=== PATIENT | male | born 1945 | race Caucasian/White ===

== ENCOUNTER 2021-07-03 10:47 | Inpatient (IN) ==
[2021-07-03 11:29] LABS: Basophils % 0.2 %; Eosinophils % 0.1 %; Hematocrit 23.1 % (37.5-50.1); Hemoglobin 7.1 g/dL (12.9-16.9); Immature Granulocytes % 0.7 % (0-4); Lymphocytes # 0.8 K/mcL (0.6-4.6); Lymphocytes % 4.3 %; Mean Corpuscular HGB Conc 30.7 g/dL (31.6-35.5); Mean Corpuscular Hemoglobin 30.2 pg (28.0-33.3); Mean Corpuscular Volume 98.3 fL (83.0-100.0); Mean Platelet Volume 10.4 fL (9.4-12.4); Monocytes % 5.5 %; Neutrophils # 16.4 K/mcL (1.6-8.9); Platelet Count 389 K/mcL (140-400); Red Blood Count 2.35 M/mcL (4.19-5.50); Red Cell Distribution Width 13.6 % (11.5-14.5); Segmented Neutrophils % 89.2 %; White Blood Count 18.3 K/mcL (4.3-11.1)
[2021-07-03 11:37] LABS: INR 1.2; Prothrombin Time 13.2 Seconds (9.4-12.1)
[2021-07-03 11:39] LABS: Activated Partial Thrombo Time 31.4 Seconds (26.0-36.0)
[2021-07-03 11:52] LABS: Albumin 3.5 g/dL (3.5-5.7); Albumin/Globulin Ratio 1.1 (1.1-2.2); Bilirubin,Total 0.2 mg/dL (0.3-1.0); Calcium 8.7 mg/dL (8.6-10.3); Globulin 3.1 g/dL (2.4-3.5); Potassium 5.6 mEq/L (3.5-5.1); Total Protein 6.6 g/dL (6.4-8.9); Troponin I 0.03 ng/mL (< 0.04)
[2021-07-03] MEDS ORDERED: Pantoprazole 40 MG VIAL IVP ONE (13:08)
[2021-07-03] MEDS ORDERED: 0.9 % Sodium Chloride 250 ML ONE (14:28)
[2021-07-03] MEDS ORDERED: Naloxone 0.4 MG/ML INJ IVP PRN (14:36)
[2021-07-03] MEDS ORDERED: MOM Conc 10 ML UD.LIQ PO PRN (17:40)
[2021-07-03] MEDS ORDERED: Ondansetron ODT 4 MG TAB.RAPDIS PO PRN (17:40)
[2021-07-03] MEDS ORDERED: Acetaminophen 325 MG TABLET PO PRN (17:40)
[2021-07-03] MEDS: QUEtiapine Fumarate 100 MG TABLET PO SCH (19:54)
[2021-07-03] MEDS: Melatonin 3 MG TABLET PO SCH (19:54)
[2021-07-03] MEDS: Divalproex (12 HR) 250 MG TABLET PO SCH (19:55)
[2021-07-03] MEDS: Mirtazapine 15 MG TABLET PO SCH (19:55)
[2021-07-03] MEDS: lisinopriL 5 MG TABLET PO SCH (19:55)
[2021-07-03] MEDS: CarBAMazepine 100 MG TABLET PO SCH (19:56)
[2021-07-04 02:11] LABS: Basophils # 0.1 K/mcL (0.0-0.2); Basophils % 0.5 %; Eosinophils # 0.1 K/mcL (0.0-0.6); Eosinophils % 1.5 %; Hematocrit 20.7 % (37.5-50.1); Hemoglobin 6.5 g/dL (12.9-16.9); Immature Granulocytes % 1.3 % (0-4); Lymphocytes # 1.8 K/mcL (0.6-4.6); Lymphocytes % 18.7 %; Mean Corpuscular HGB Conc 31.4 g/dL (31.6-35.5); Mean Corpuscular Hemoglobin 31.3 pg (28.0-33.3); Mean Corpuscular Volume 99.5 fL (83.0-100.0); Mean Platelet Volume 10.5 fL (9.4-12.4); Monocytes # 0.8 K/mcL (0.0-1.3); Monocytes % 8.1 %; Neutrophils # 6.6 K/mcL (1.6-8.9); Nucleated Red Blood Cells 0.2 /100 WBC (0); Platelet Count 277 K/mcL (140-400); Red Blood Count 2.08 M/mcL (4.19-5.50); Segmented Neutrophils % 69.9 %; White Blood Count 9.5 K/mcL (4.3-11.1)
[2021-07-04 02:28] LABS: Calcium 7.8 mg/dL (8.6-10.3); Potassium 4.7 mEq/L (3.5-5.1)
[2021-07-04] MEDS ORDERED: 0.9 % Sodium Chloride 250 ML ONE (02:53)
[2021-07-04] MEDS: ALPRAZolam 0.5 MG TABLET PO SCH ×5 (05:19→20:17)
[2021-07-04] MEDS ORDERED: Pantoprazole 40 MG VIAL IVP SCH (06:00)
[2021-07-04] MEDS ORDERED: 0.9 % Sodium Chloride 500 ML IV ONE (06:18)
[2021-07-04] MEDS ORDERED: 0.9 % Sodium Chloride 500 ML ONE (06:19)
[2021-07-04] MEDS: Isosorbide MONOnitrate (24 HR) 30 MG TAB.ER.24H PO SCH ×2 (07:41→07:45)
[2021-07-04] MEDS: Aspirin Enteric Coated 81 MG Tablet PO SCH (07:41)
[2021-07-04] MEDS: QUEtiapine Fumarate 100 MG TABLET PO SCH ×2 (07:41→19:57)
[2021-07-04] MEDS: Divalproex (12 HR) 250 MG TABLET PO SCH ×2 (07:41→20:08)
[2021-07-04] MEDS: CarBAMazepine 100 MG TABLET PO SCH ×2 (07:41→20:17)
[2021-07-04 09:56] LABS: Hemoglobin 7.8 g/dL (12.9-16.9)
[2021-07-04] MEDS ORDERED: Lidocaine -MPF 2% 5 ML VIAL ONE (14:09)
[2021-07-04] MEDS ORDERED: *HR* EPINEPHrine 1 MG/10 ML SYRINGE INTRATRACH PRN (14:45)
[2021-07-04] MEDS ORDERED: *HR* Propofol 200 MG/20 ML VIAL IVP ONE (14:46)
[2021-07-04] MEDS: Pantoprazole 40 MG in 0.9 % Sodium Chloride Mini Bag 100 ML IVC SCH ×2 (17:56→20:18)
[2021-07-04] MEDS: Mirtazapine 15 MG TABLET PO SCH (19:56)
[2021-07-04] MEDS: Melatonin 3 MG TABLET PO SCH (19:57)
[2021-07-04] MEDS: lisinopriL 5 MG TABLET PO SCH (20:09)
[2021-07-04 22:41] LABS: Basophils % 0.4 %; Eosinophils % 0.3 %; Hematocrit 22.9 % (37.5-50.1); Hemoglobin 7.5 g/dL (12.9-16.9); Immature Granulocytes % 3.7 % (0-4); Lymphocytes % 19.8 %; Mean Corpuscular HGB Conc 32.8 g/dL (31.6-35.5); Mean Corpuscular Volume 94.6 fL (83.0-100.0); Mean Platelet Volume 9.8 fL (9.4-12.4); Monocytes # 0.7 K/mcL (0.0-1.3); Monocytes % 6.9 %; Neutrophils # 6.8 K/mcL (1.6-8.9); Nucleated Red Blood Cells 0.4 /100 WBC (0); Platelet Count 225 K/mcL (140-400); Red Blood Count 2.42 M/mcL (4.19-5.50); Red Cell Distribution Width 15.2 % (11.5-14.5); Segmented Neutrophils % 68.9 %; White Blood Count 9.8 K/mcL (4.3-11.1)
[2021-07-05] MEDS: Pantoprazole 40 MG in 0.9 % Sodium Chloride Mini Bag 100 ML IVC SCH ×5 (01:28→23:29)
[2021-07-05 03:33] LABS: Hematocrit 22.4 % (37.5-50.1); Hemoglobin 7.1 g/dL (12.9-16.9)
[2021-07-05 03:36] LABS: Basophils % 0.5 %; Eosinophils # 0.1 K/mcL (0.0-0.6); Eosinophils % 1.1 %; Hematocrit 22.4 % (37.5-50.1); Hemoglobin 7.1 g/dL (12.9-16.9); Lymphocytes # 1.8 K/mcL (0.6-4.6); Lymphocytes % 21.1 %; Mean Corpuscular HGB Conc 31.7 g/dL (31.6-35.5); Mean Corpuscular Hemoglobin 30.5 pg (28.0-33.3); Mean Corpuscular Volume 96.1 fL (83.0-100.0); Mean Platelet Volume 10.1 fL (9.4-12.4); Monocytes # 0.7 K/mcL (0.0-1.3); Monocytes % 8.2 %; Neutrophils # 5.4 K/mcL (1.6-8.9); Nucleated Red Blood Cells 0.5 /100 WBC (0); Platelet Count 224 K/mcL (140-400); Red Blood Count 2.33 M/mcL (4.19-5.50); Red Cell Distribution Width 15.3 % (11.5-14.5); Segmented Neutrophils % 65.1 %; White Blood Count 8.3 K/mcL (4.3-11.1)
[2021-07-05 03:51] LABS: BUN/Creatinine Ratio 63 (6-26); Blood Urea Nitrogen 79 mg/dL (8-23); Calcium 7.5 mg/dL (8.6-10.3); Carbon Dioxide 20 mEq/L (23-29); Chloride 113 mEq/L (98-107); Glucose 112 mg/dL (70-105); Osmolality,Calculated 312 (280-300); Potassium 4.4 mEq/L (3.5-5.1); Sodium 139 mEq/L (136-145); eGFR For African Americans > 60 (> 60); eGFR For Non-African Americans 56 (> 60)
[2021-07-05] MEDS: QUEtiapine Fumarate 100 MG TABLET PO SCH ×2 (08:41→21:45)
[2021-07-05] MEDS: Aspirin Enteric Coated 81 MG Tablet PO SCH (08:41)
[2021-07-05] MEDS: Divalproex (12 HR) 250 MG TABLET PO SCH ×2 (08:41→21:47)
[2021-07-05] MEDS: Isosorbide MONOnitrate (24 HR) 30 MG TAB.ER.24H PO SCH (08:41)
[2021-07-05] MEDS: CarBAMazepine 100 MG TABLET PO SCH ×2 (08:42→21:47)
[2021-07-05] MEDS: ALPRAZolam 0.5 MG TABLET PO SCH ×4 (09:46→21:45)
[2021-07-05 10:42] LABS: Hematocrit 21.8 % (37.5-50.1); Hemoglobin 7.2 g/dL (12.9-16.9)
[2021-07-05] MEDS ORDERED: 0.9 % Sodium Chloride 1,000 ML IVC ONE (16:40)
[2021-07-05 16:41] LABS: Hematocrit 18.7 % (37.5-50.1)
[2021-07-05] MEDS ORDERED: 0.9 % Sodium Chloride 1,000 ML ONE (16:43)
[2021-07-05] MEDS ORDERED: *HR* EPINEPHrine 1 MG/10 ML SYRINGE INTRATRACH PRN (18:25)
[2021-07-05] MEDS ORDERED: *HR* Propofol 200 MG/20 ML VIAL IVP ONE (18:29)
[2021-07-05] MEDS ORDERED: Lidocaine -MPF 2% 2 ML VIAL ONE (18:56)
[2021-07-05 21:23] LABS: Hematocrit 27.2 % (37.5-50.1)
[2021-07-05 21:24] LABS: Hemoglobin 8.7 g/dL (12.9-16.9)
[2021-07-05] MEDS: Melatonin 3 MG TABLET PO SCH (21:45)
[2021-07-05] MEDS: lisinopriL 5 MG TABLET PO SCH (21:45)
[2021-07-05] MEDS: Mirtazapine 15 MG TABLET PO SCH (21:46)
[2021-07-06 04:19] LABS: Hemoglobin 8.8 g/dL (12.9-16.9); Immature Granulocytes % 4.2 % (0-4); Lymphocytes % 14.9 %; Mean Corpuscular HGB Conc 30.3 g/dL (31.6-35.5); Mean Corpuscular Hemoglobin 29.5 pg (28.0-33.3); Mean Corpuscular Volume 97.3 fL (83.0-100.0); Mean Platelet Volume 10.2 fL (9.4-12.4); Platelet Count 182 K/mcL (140-400); Red Blood Count 2.98 M/mcL (4.19-5.50); Red Cell Distribution Width 16.1 % (11.5-14.5); Segmented Neutrophils % 69.5 %
[2021-07-06 04:20] LABS: Basophils # 0.1 K/mcL (0.0-0.2); Basophils % 0.7 %; Eosinophils # 0.1 K/mcL (0.0-0.6); Eosinophils % 0.4 %; Lymphocytes # 2.3 K/mcL (0.6-4.6); Monocytes # 1.6 K/mcL (0.0-1.3); Monocytes % 10.3 %; Neutrophils # 10.6 K/mcL (1.6-8.9); Nucleated Red Blood Cells 1.3 /100 WBC (0)
[2021-07-06 04:21] LABS: White Blood Count 15.3 K/mcL (4.3-11.1)
[2021-07-06 04:42] LABS: BUN/Creatinine Ratio 55 (6-26); Blood Urea Nitrogen 63 mg/dL (8-23); Calcium 7.6 mg/dL (8.6-10.3); Carbon Dioxide 18 mEq/L (23-29); Chloride 114 mEq/L (98-107); Glucose 99 mg/dL (70-105); Osmolality,Calculated 304 (280-300); Sodium 138 mEq/L (136-145); eGFR For African Americans > 60 (> 60); eGFR For Non-African Americans > 60 (> 60)
[2021-07-06] MEDS: Pantoprazole 40 MG in 0.9 % Sodium Chloride Mini Bag 100 ML IVC SCH ×2 (05:04→11:47)
[2021-07-06 08:39] LABS: Hematocrit 22.7 % (37.5-50.1); Hemoglobin 7.7 g/dL (12.9-16.9)
[2021-07-06 08:41] LABS: VBG Ionized Calcium 1.23 mmol/L (1.15-1.35)
[2021-07-06] MEDS: Isosorbide MONOnitrate (24 HR) 30 MG TAB.ER.24H PO SCH (09:55)
[2021-07-06] MEDS: Divalproex (12 HR) 250 MG TABLET PO SCH ×2 (09:56→21:05)
[2021-07-06] MEDS: Aspirin Enteric Coated 81 MG Tablet PO SCH (09:56)
[2021-07-06] MEDS: CarBAMazepine 100 MG TABLET PO SCH ×2 (09:57→21:06)
[2021-07-06] MEDS: QUEtiapine Fumarate 100 MG TABLET PO SCH ×2 (09:57→21:05)
[2021-07-06] MEDS: ALPRAZolam 0.5 MG TABLET PO SCH ×4 (09:58→21:14)
[2021-07-06 13:34] LABS: Hemoglobin 7.1 g/dL (12.9-16.9)
[2021-07-06 18:42] LABS: Hematocrit 23.4 % (37.5-50.1); Hemoglobin 7.4 g/dL (12.9-16.9)
[2021-07-06] MEDS: Mirtazapine 15 MG TABLET PO SCH (21:05)
[2021-07-06] MEDS: Melatonin 3 MG TABLET PO SCH (21:05)
[2021-07-06] MEDS: lisinopriL 5 MG TABLET PO SCH (21:06)
[2021-07-07] MEDS: Pantoprazole 40 MG in 0.9 % Sodium Chloride Mini Bag 100 ML IVC SCH ×4 (00:39→20:06)
[2021-07-07 00:51] LABS: Hematocrit 22.6 % (37.5-50.1); Hemoglobin 7.4 g/dL (12.9-16.9); Mean Corpuscular HGB Conc 32.7 g/dL (31.6-35.5); Mean Corpuscular Hemoglobin 31.1 pg (28.0-33.3); Platelet Count 187 K/mcL (140-400); Red Blood Count 2.38 M/mcL (4.19-5.50); White Blood Count 9.8 K/mcL (4.3-11.1)
[2021-07-07 01:10] LABS: BUN/Creatinine Ratio 41 (6-26); Blood Urea Nitrogen 41 mg/dL (8-23); Calcium 7.8 mg/dL (8.6-10.3); Carbon Dioxide 19 mEq/L (23-29); Chloride 116 mEq/L (98-107); Glucose 90 mg/dL (70-105); Osmolality,Calculated 306 (280-300); Potassium 4.1 mEq/L (3.5-5.1); Sodium 143 mEq/L (136-145); eGFR For African Americans > 60 (> 60); eGFR For Non-African Americans > 60 (> 60)
[2021-07-07] MEDS: Aspirin Enteric Coated 81 MG Tablet PO SCH (09:13)
[2021-07-07] MEDS: CarBAMazepine 100 MG TABLET PO SCH ×2 (09:13→21:35)
[2021-07-07] MEDS: QUEtiapine Fumarate 100 MG TABLET PO SCH ×2 (09:14→21:36)
[2021-07-07] MEDS: ALPRAZolam 0.5 MG TABLET PO SCH ×4 (09:14→21:36)
[2021-07-07] MEDS: Divalproex (12 HR) 250 MG TABLET PO SCH ×2 (09:14→21:36)
[2021-07-07] MEDS: Isosorbide MONOnitrate (24 HR) 30 MG TAB.ER.24H PO SCH (09:14)
[2021-07-07 14:23] LABS: Hematocrit 24.6 % (37.5-50.1); Hemoglobin 7.6 g/dL (12.9-16.9)
[2021-07-07] MEDS: lisinopriL 5 MG TABLET PO SCH (21:36)
[2021-07-07] MEDS: Mirtazapine 15 MG TABLET PO SCH (21:36)
[2021-07-07] MEDS: Melatonin 3 MG TABLET PO SCH (21:36)
[2021-07-08] MEDS: Pantoprazole 40 MG in 0.9 % Sodium Chloride Mini Bag 100 ML IVC SCH ×6 (01:15→15:22)
[2021-07-08] MEDS ORDERED: *HR* Dextrose 50 % in Water (Syg) 50 ML SYRINGE ONE (01:17)
[2021-07-08] MEDS: *HR* Dextrose 50 % in Water (Syg) 50 ML SYRINGE IVP PRN ×2 (01:20→06:43)
[2021-07-08] MEDS ORDERED: D5% in Water 1,000 ML IVC PRN (01:20)
[2021-07-08] MEDS ORDERED: Dextrose Gel 15 GM/37.5 ML TUBE PO PRN ×2 (01:20)
[2021-07-08] MEDS: Isosorbide MONOnitrate (24 HR) 30 MG TAB.ER.24H PO SCH (07:49)
[2021-07-08] MEDS: Divalproex (12 HR) 250 MG TABLET PO SCH ×2 (07:49→22:06)
[2021-07-08] MEDS: CarBAMazepine 100 MG TABLET PO SCH ×2 (07:49→22:06)
[2021-07-08] MEDS: ALPRAZolam 0.5 MG TABLET PO SCH ×4 (07:50→22:07)
[2021-07-08] MEDS: QUEtiapine Fumarate 100 MG TABLET PO SCH ×2 (07:50→22:07)
[2021-07-08] MEDS: D5% in 0.45% NACL 1,000 ML IVC SCH (16:32)
[2021-07-08 17:36] LABS: Basophils % 0.5 %; Eosinophils # 0.3 K/mcL (0.0-0.6); Eosinophils % 3.1 %; Hematocrit 24.7 % (37.5-50.1); Hemoglobin 7.7 g/dL (12.9-16.9); Lymphocytes # 1.4 K/mcL (0.6-4.6); Lymphocytes % 15.6 %; Mean Corpuscular HGB Conc 31.2 g/dL (31.6-35.5); Mean Corpuscular Hemoglobin 30.2 pg (28.0-33.3); Mean Corpuscular Volume 96.9 fL (83.0-100.0); Mean Platelet Volume 10.1 fL (9.4-12.4); Monocytes # 0.7 K/mcL (0.0-1.3); Monocytes % 7.6 %; Neutrophils # 6.2 K/mcL (1.6-8.9); Nucleated Red Blood Cells 0.3 /100 WBC (0); Platelet Count 238 K/mcL (140-400); Red Blood Count 2.55 M/mcL (4.19-5.50); Red Cell Distribution Width 17.2 % (11.5-14.5); Segmented Neutrophils % 71.2 %; White Blood Count 8.7 K/mcL (4.3-11.1)
[2021-07-08 17:56] LABS: BUN/Creatinine Ratio 20 (6-26); Blood Urea Nitrogen 17 mg/dL (8-23); Calcium 7.9 mg/dL (8.6-10.3); Carbon Dioxide 21 mEq/L (23-29); Chloride 114 mEq/L (98-107); Glucose 96 mg/dL (70-105); Osmolality,Calculated 297 (280-300); Sodium 143 mEq/L (136-145); eGFR For African Americans > 60 (> 60); eGFR For Non-African Americans > 60 (> 60)
[2021-07-08] MEDS: Pantoprazole 40 MG VIAL IVP SCH (18:13)
[2021-07-08] MEDS: Mirtazapine 15 MG TABLET PO SCH (22:06)
[2021-07-08] MEDS: Melatonin 3 MG TABLET PO SCH (22:06)
[2021-07-08] MEDS: lisinopriL 5 MG TABLET PO SCH (22:07)
[2021-07-09] MEDS: D5% in 0.45% NACL 1,000 ML IVC SCH ×3 (05:41→19:41)
[2021-07-09] MEDS: Pantoprazole 40 MG VIAL IVP SCH ×2 (05:42→17:00)
[2021-07-09] MEDS: Divalproex (12 HR) 250 MG TABLET PO SCH ×2 (08:38→19:41)
[2021-07-09] MEDS: Isosorbide MONOnitrate (24 HR) 30 MG TAB.ER.24H PO SCH (08:38)
[2021-07-09] MEDS: CarBAMazepine 100 MG TABLET PO SCH ×2 (08:38→19:42)
[2021-07-09] MEDS: QUEtiapine Fumarate 100 MG TABLET PO SCH ×2 (08:38→19:42)
[2021-07-09] MEDS: ALPRAZolam 0.5 MG TABLET PO SCH ×4 (08:42→19:41)
[2021-07-09] MEDS ORDERED: Iron Sucrose Complex 400 MG in 0.9 % Sodium Chloride 250 ML IVPB ONE (12:15)
[2021-07-09 17:41] LABS: Basophils % 0.3 %; Eosinophils # 0.3 K/mcL (0.0-0.6); Hematocrit 23.1 % (37.5-50.1); Hemoglobin 7.2 g/dL (12.9-16.9); Immature Granulocytes % 1.7 % (0-4); Lymphocytes # 1.3 K/mcL (0.6-4.6); Lymphocytes % 17.8 %; Mean Corpuscular HGB Conc 31.2 g/dL (31.6-35.5); Mean Corpuscular Hemoglobin 30.4 pg (28.0-33.3); Mean Corpuscular Volume 97.5 fL (83.0-100.0); Mean Platelet Volume 10.2 fL (9.4-12.4); Monocytes # 0.6 K/mcL (0.0-1.3); Monocytes % 8.5 %; Neutrophils # 5.1 K/mcL (1.6-8.9); Nucleated Red Blood Cells 0.3 /100 WBC (0); Platelet Count 243 K/mcL (140-400); Red Blood Count 2.37 M/mcL (4.19-5.50); Red Cell Distribution Width 16.9 % (11.5-14.5); Segmented Neutrophils % 67.7 %; White Blood Count 7.5 K/mcL (4.3-11.1)
[2021-07-09 18:04] LABS: % Iron Saturation 239 % (20-55); Iron 600 mcg/dL (65-175); Transferrin 179 mg/dL (203-362)
[2021-07-09 18:22] LABS: Ferritin 113 ng/mL (20-250)
[2021-07-09 18:27] LABS: Folate 17.1 ng/mL (3.0-16.0)
[2021-07-09 18:30] LABS: Vitamin B12 > 1500 pg/mL (250-1100)
[2021-07-09] MEDS: Mirtazapine 15 MG TABLET PO SCH (19:41)
[2021-07-09] MEDS: lisinopriL 5 MG TABLET PO SCH (19:41)
[2021-07-09] MEDS: Melatonin 3 MG TABLET PO SCH (19:42)
[2021-07-10 02:36] LABS: Hematocrit 22.3 % (37.5-50.1); Mean Corpuscular HGB Conc 31.4 g/dL (31.6-35.5); Mean Corpuscular Hemoglobin 30.8 pg (28.0-33.3); Mean Corpuscular Volume 98.2 fL (83.0-100.0); Mean Platelet Volume 10.3 fL (9.4-12.4); Platelet Count 230 K/mcL (140-400); Red Blood Count 2.27 M/mcL (4.19-5.50); White Blood Count 7.5 K/mcL (4.3-11.1)
[2021-07-10 02:58] LABS: BUN/Creatinine Ratio 11 (6-26); Blood Urea Nitrogen 9 mg/dL (8-23); Calcium 7.3 mg/dL (8.6-10.3); Carbon Dioxide 21 mEq/L (23-29); Chloride 110 mEq/L (98-107); Glucose 126 mg/dL (70-105); Osmolality,Calculated 284 (280-300); Potassium 3.4 mEq/L (3.5-5.1); Sodium 137 mEq/L (136-145); eGFR For African Americans > 60 (> 60); eGFR For Non-African Americans > 60 (> 60)
[2021-07-10] MEDS: Pantoprazole 40 MG VIAL IVP SCH ×2 (04:55→18:51)
[2021-07-10] MEDS: D5% in 0.45% NACL 1,000 ML IVC SCH ×2 (09:10→20:57)
[2021-07-10] MEDS: QUEtiapine Fumarate 100 MG TABLET PO SCH ×2 (09:11→20:33)
[2021-07-10] MEDS: ALPRAZolam 0.5 MG TABLET PO SCH ×3 (09:11→18:51)
[2021-07-10] MEDS: CarBAMazepine 100 MG TABLET PO SCH ×2 (09:11→20:33)
[2021-07-10] MEDS: Divalproex (12 HR) 250 MG TABLET PO SCH ×2 (09:11→20:31)
[2021-07-10] MEDS: Isosorbide MONOnitrate (24 HR) 30 MG TAB.ER.24H PO SCH (09:11)
[2021-07-10] MEDS: Mirtazapine 15 MG TABLET PO SCH (20:31)
[2021-07-10] MEDS: lisinopriL 5 MG TABLET PO SCH (20:32)
[2021-07-11] MEDS: ALPRAZolam 0.5 MG TABLET PO SCH ×3 (02:41→15:39)
[2021-07-11] MEDS: Melatonin 3 MG TABLET PO SCH ×2 (02:42→21:44)
[2021-07-11] MEDS: Pantoprazole 40 MG VIAL IVP SCH ×2 (04:42→18:03)
[2021-07-11 10:07] LABS: Basophils % 0.4 %; Eosinophils # 0.3 K/mcL (0.0-0.6); Eosinophils % 3.1 %; Hematocrit 24.7 % (37.5-50.1); Hemoglobin 7.7 g/dL (12.9-16.9); Immature Granulocytes % 1.2 % (0-4); Lymphocytes # 0.9 K/mcL (0.6-4.6); Lymphocytes % 8.6 %; Mean Corpuscular HGB Conc 31.2 g/dL (31.6-35.5); Mean Corpuscular Hemoglobin 30.3 pg (28.0-33.3); Mean Corpuscular Volume 97.2 fL (83.0-100.0); Mean Platelet Volume 10.1 fL (9.4-12.4); Monocytes # 0.7 K/mcL (0.0-1.3); Monocytes % 6.8 %; Neutrophils # 8.7 K/mcL (1.6-8.9); Platelet Count 327 K/mcL (140-400); Red Blood Count 2.54 M/mcL (4.19-5.50); Red Cell Distribution Width 16.5 % (11.5-14.5); Segmented Neutrophils % 79.9 %; White Blood Count 10.8 K/mcL (4.3-11.1)
[2021-07-11 10:22] LABS: Carbon Dioxide 21 mEq/L (23-29); Chloride 109 mEq/L (98-107); Potassium 3.8 mEq/L (3.5-5.1); Sodium 137 mEq/L (136-145)
[2021-07-11 10:23] LABS: BUN/Creatinine Ratio 11 (6-26); Blood Urea Nitrogen 9 mg/dL (8-23); Calcium 7.6 mg/dL (8.6-10.3); Glucose 132 mg/dL (70-105); Magnesium 1.6 mg/dL (1.6-2.6); Osmolality,Calculated 285 (280-300); Phosphorous 2.2 mg/dL (2.7-4.5); eGFR For African Americans > 60 (> 60); eGFR For Non-African Americans > 60 (> 60)
[2021-07-11] MEDS: Sucralfate 1 GM TABLET PO SCH ×3 (10:37→22:09)
[2021-07-11] MEDS: QUEtiapine Fumarate 100 MG TABLET PO SCH ×2 (10:38→21:44)
[2021-07-11] MEDS: Isosorbide MONOnitrate (24 HR) 30 MG TAB.ER.24H PO SCH (10:38)
[2021-07-11] MEDS: Divalproex (12 HR) 250 MG TABLET PO SCH ×2 (10:39→21:45)
[2021-07-11] MEDS: CarBAMazepine 100 MG TABLET PO SCH ×2 (10:39→21:44)
[2021-07-11] MEDS: D5% in 0.45% NACL 1,000 ML IVC SCH (10:49)
[2021-07-11 14:57] LABS: Hematocrit 22.5 % (37.5-50.1)
[2021-07-11] MEDS: lisinopriL 5 MG TABLET PO SCH (21:45)
[2021-07-11] MEDS: Mirtazapine 15 MG TABLET PO SCH (21:45)
[2021-07-11 22:26] LABS: Hematocrit 25.8 % (37.5-50.1); Hemoglobin 7.8 g/dL (12.9-16.9)
[2021-07-12] MEDS: ALPRAZolam 0.5 MG TABLET PO SCH ×4 (05:20→18:18)
[2021-07-12] MEDS: Pantoprazole 40 MG VIAL IVP SCH ×2 (05:29→18:19)
[2021-07-12 08:00] LABS: Hematocrit 23.3 % (37.5-50.1)
[2021-07-12 08:13] LABS: BUN/Creatinine Ratio 13 (6-26); Blood Urea Nitrogen 10 mg/dL (8-23); Calcium 7.6 mg/dL (8.6-10.3); Carbon Dioxide 24 mEq/L (23-29); Chloride 110 mEq/L (98-107); Glucose 111 mg/dL (70-105); Magnesium 1.8 mg/dL (1.6-2.6); Osmolality,Calculated 288 (280-300); Phosphorous 2.5 mg/dL (2.7-4.5); Potassium 4.4 mEq/L (3.5-5.1); Sodium 139 mEq/L (136-145); eGFR For African Americans > 60 (> 60); eGFR For Non-African Americans > 60 (> 60)
[2021-07-12] MEDS: CarBAMazepine 100 MG TABLET PO SCH (09:24)
[2021-07-12] MEDS: Isosorbide MONOnitrate (24 HR) 30 MG TAB.ER.24H PO SCH (09:25)
[2021-07-12] MEDS: QUEtiapine Fumarate 100 MG TABLET PO SCH (09:26)
[2021-07-12] MEDS: Sucralfate 1 GM TABLET PO SCH ×3 (09:26→18:18)
[2021-07-12] MEDS: Divalproex (12 HR) 250 MG TABLET PO SCH (09:26)
[2021-07-12 14:53] LABS: Adenovirus Not Detected (Not Detect); Bordetella Pertussis Not Detected (Not Detect); Chlamydophila pneumoniae Not Detected (Not Detect); Coronavirus 229E Not Detected (Not Detect); Coronavirus HKU1 Not Detected (Not Detect); Coronavirus NL63 Not Detected (Not Detect); Coronavirus OC43 Not Detected (Not Detect); Human Metapneumovirus Not Detected (Not Detect); Human Rhinovirus/Enterovirus Not Detected (Not Detect); Influenza A Subtype 2009 H1 Not Detected (Not Detect); Influenza B Not Detected (Not Detect); Mycoplasma pneumoniae Not Detected (Not Detect); Parainfluenza Virus 1 Not Detected (Not Detect); Parainfluenza Virus 2 Not Detected (Not Detect); Parainfluenza Virus 3 Not Detected (Not Detect); Parainfluenza Virus 4 Not Detected (Not Detect); Respiratory Syncytial Virus Not Detected (Not Detect); SARS-CoV-2 Not Detected (Not Detect)
[2021-07-12 19:19] VITALS: BP 109/59; PULSE 73; TEMP 98.2; O2SAT 96
== END 2021-07-12 20:30 | DRG 377 ==
LOC: 3ANU 10:47 → EMEROOARM 10:47 → SUATTDRO 13:30 → 3ANU 13:56 → 2NNU 07-04 15:46 → SUATTDRO 07-05 14:36 → 2NENU 07-06 12:49 → 3ANU 07-11 13:24
PROVIDERS: ADMIT Internal Medicine; ATTEND Internal Medicine